=== PATIENT | male | born 1960 | race Two or more races ===

== ENCOUNTER 2024-03-01 09:47 | Emergency (ER) | payer MEDICARE, OTHER ==
[~2024-03-01] VITALS: Ht 172.7 cm; Wt 76.8 kg
[2024-03-01 10:25] LABS: Basophils # (auto) 0 10 ^3/uL (0-0.2); Mean Corpuscular Volume 100.5 fL (80.0-100.0); Monocytes # (auto) 0.5 10 ^3/uL (0-1.3); Neutrophils # (auto) 3.1 10 ^3/uL (1.6-8.6); White Blood Cell 4.9 10^3/uL (4.4-10.8)
[2024-03-01 10:27] LABS: Basophils % (auto) 0.6 % (0.0-2.0); Eosinophils # (auto) 0.1 10 ^3/uL (0-0.8); Eosinophils % (auto) 1.1 % (0.0-7.0); Hematocrit 49.7 % (41.0-53.0); Hemoglobin 17.4 g/dL (13.5-17.5); Lymphocytes # (auto) 1.2 10 ^3/uL (0.4-5.4); Mean Corpuscular Hemoglobin 35.3 pg (28.0-32.0); Mean Corpuscular Hgb Conc. 35.1 g/dL (32.0-36.0); Monocytes % (auto) 10.6 % (0.0-12.0); Neutrophils % (auto) 63.7 % (37.0-80.0); Nucleated Red Blood Cells % 0.3 %; Red Blood Cells 4.95 10^6/uL (4.5-5.90); Red Cell Distribution Width 14.3 % (11.8-14.3)
[2024-03-01 10:39] LABS: Chloride 102 mmol/L (98-107); Potassium 3.9 mmol/L (3.5-5.1); Sodium 136 mmol/L (136-145)
[2024-03-01 10:40] LABS: Anion Gap 5 (5-15); Calcium 9.1 mg/dL (8.5-10.1); Carbon Dioxide 29 mmol/L (20-30)
[2024-03-01 10:45] LABS: BUN/Creatinine Ratio 13.3 (10.0-20.0); Blood Urea Nitrogen 13 mg/dL (9-23); Glucose 130 mg/dL (74-106)
[2024-03-01 10:50] VITALS: BP 135/90; PULSE 75; RESP 18; TEMP 98.8; O2SAT 97
[2024-03-01 10:57] LABS: INR 1.23 (0.9-1.15); Prothrombin Time 12.8 sec (9.3-11.8)
[2024-03-01 10:58] LABS: Bilirubin, Total 1.2 mg/dL (0.2-1.0)
== END 2024-03-01 10:55 | disposition left against medical advice (07) ==
LOC: ER 09:47
DX: K70.9 Alcoholic liver disease, unspecified (principal); E11.9 Type 2 diabetes mellitus without complications
CPT/HCPCS: 36415; 80048; 82247; 84075; 84450; 84460; 84484; 85025; 85610; 93005

== ENCOUNTER 2024-05-07 12:18 | Inpatient (IN) | payer MEDICARE, OTHER ==
[2024-05-06 23:32] VITALS: PULSE 72; RESP 16; O2SAT 96
[~2024-05-07] VITALS: Ht 172.7 cm; Wt 65.4 kg
[2024-05-07 12:46] VITALS: PULSE 81; RESP 13; O2SAT 95
[2024-05-07 13:16] LABS: Basophils # (auto) 0.1 10 ^3/uL (0-0.2); Eosinophils # (auto) 0.1 10 ^3/uL (0-0.8); Eosinophils % (auto) 1.3 % (0.0-7.0); Hematocrit 48.1 % (41.0-53.0); Hemoglobin 16.7 g/dL (13.5-17.5); Lymphocytes # (auto) 1.4 10 ^3/uL (0.4-5.4); Lymphocytes % (auto) 25.5 % (10.0-50.0); Mean Corpuscular Hgb Conc. 34.7 g/dL (32.0-36.0); Mean Corpuscular Volume 100.7 fL (80.0-100.0); Monocytes # (auto) 0.7 10 ^3/uL (0-1.3); Monocytes % (auto) 11.9 % (0.0-12.0); Neutrophils # (auto) 3.4 10 ^3/uL (1.6-8.6); Neutrophils % (auto) 60.3 % (37.0-80.0); Nucleated Red Blood Cells % 0.1 %; Platelet Count (auto) 110 10^3/uL (140-450); Red Blood Cells 4.78 10^6/uL (4.5-5.90); Red Cell Distribution Width 15.5 % (11.8-14.3); White Blood Cell 5.6 10^3/uL (4.4-10.8)
[2024-05-07 13:31] LABS: Alanine Aminotransferase 26 U/L (7-40); Albumin 3.4 g/dL (3.2-4.8); Alkaline Phosphatase 166 U/L (46-116); Anion Gap 7 (5-15); Aspartate Aminotransferase 50 U/L (13-40); BUN/Creatinine Ratio 25.7 (10.0-20.0); Blood Urea Nitrogen 26 mg/dL (9-23); Calcium 9.2 mg/dL (8.7-10.4); Carbon Dioxide 24 mmol/L (20-30); Chloride 104 mmol/L (98-107); Glucose 135 mg/dL (74-106); Potassium 4.2 mmol/L (3.5-5.1); Sodium 135 mmol/L (136-145)
[2024-05-07 13:32] LABS: Bilirubin, Total 1.6 mg/dL (0.2-1.0); Total Protein 6.8 g/dL (5.7-8.2)
[2024-05-07 14:45] LABS: Urine Bacteria None Seen /hpf (None Seen)
[2024-05-07 14:58] LABS: Urine Blood Negative /uL (Negative); Urine Clarity Clear (Clear); Urine Color Yellow (Yellow); Urine Protein, UAD Negative (Negative); Urine Specific Gravity 1.031 (1.001-1.035); Urine Urobilinogen Normal (Negative); Urine WBC 1 /hpf (0 - 3)
[2024-05-07 15:10] LABS: INR 1.12 (0.9-1.15); Partial Thromboplastin Time 28.8 SEC (24.5-34.5); Prothrombin Time 11.8 sec (9.3-11.8)
[2024-05-07] MEDS: dilTIAZem 25 MG/5 ML VIAL IV ONE (16:59)
[2024-05-07] MEDS ORDERED: DOCUSATE SOD 100 MG CAP PO PRN (17:00)
[2024-05-07] MEDS ORDERED: ACETAMINOPHEN 325 MG TAB PO PRN (17:00)
[2024-05-07] MEDS ORDERED: HYDROmorphone HCL 2 MG/ML VL/or syr IV PRN (17:00)
[2024-05-07] MEDS ORDERED: HYDROcodone-ACET 5/325MG TAB PO PRN (17:00)
[2024-05-07] MEDS ORDERED: ONDANSETRON HCL 4 MG/2 ML VIAL IV PRN (17:00)
[2024-05-07] MEDS: METOPROLOL TARTRATE 25 MG TAB PO ONE (18:20)
[2024-05-07 19:30] VITALS: PULSE 71; RESP 17; O2SAT 94
[2024-05-07] MEDS: MELATONIN 5 MG TAB ONE (23:08)
[2024-05-07] MEDS: MELATONIN 5 MG TAB PO ONE (23:10)
[2024-05-07] MEDS: SODIUM CHLOR 0.9% PF (SALINE LOCK) 10ML VIAL/SYR IV SCH (23:23)
[2024-05-07 23:32] VITALS: BP 126/78; PULSE 72; RESP 18; RESP 20; TEMP 98.3; O2SAT 96
[2024-05-08] VITALS (8 sets, daily range): BP systolic 98–105; BP diastolic 58–81; PULSE 67–73; RESP 16–20; TEMP 97.6–98.5; O2SAT 95–98
[2024-05-08] MEDS: METOPROLOL TARTRATE 25 MG TAB PO SCH (09:18)
[2024-05-08 09:39] LABS: Basophils # (auto) 0 10 ^3/uL (0-0.2); Basophils % (auto) 1.1 % (0.0-2.0); Eosinophils # (auto) 0.1 10 ^3/uL (0-0.8); Hemoglobin 15.7 g/dL (13.5-17.5); Lymphocytes # (auto) 1.1 10 ^3/uL (0.4-5.4); Neutrophils # (auto) 2.5 10 ^3/uL (1.6-8.6); Nucleated Red Blood Cells % 0.3 %; White Blood Cell 4.3 10^3/uL (4.4-10.8)
[2024-05-08 09:40] LABS: Eosinophils % (auto) 1.9 % (0.0-7.0); Hematocrit 44.6 % (41.0-53.0); Lymphocytes % (auto) 25.8 % (10.0-50.0); Mean Corpuscular Hemoglobin 35.1 pg (28.0-32.0); Mean Corpuscular Hgb Conc. 35.3 g/dL (32.0-36.0); Mean Corpuscular Volume 99.5 fL (80.0-100.0); Monocytes # (auto) 0.5 10 ^3/uL (0-1.3); Monocytes % (auto) 12.3 % (0.0-12.0); Neutrophils % (auto) 58.9 % (37.0-80.0); Platelet Count (auto) 105 10^3/uL (140-450); Red Blood Cells 4.48 10^6/uL (4.5-5.90); Red Cell Distribution Width 15.8 % (11.8-14.3)
[2024-05-08 10:06] LABS: Alanine Aminotransferase 22 U/L (7-40); Alkaline Phosphatase 126 U/L (46-116); Anion Gap 4 (5-15); BUN/Creatinine Ratio 23.6 (10.0-20.0); Blood Urea Nitrogen 21 mg/dL (9-23); Calcium 9.2 mg/dL (8.7-10.4); Carbon Dioxide 27 mmol/L (20-30); Chloride 104 mmol/L (98-107); Glucose 114 mg/dL (74-106); Potassium 4.6 mmol/L (3.5-5.1); Sodium 135 mmol/L (136-145)
[2024-05-08 10:07] LABS: Albumin 3.1 g/dL (3.2-4.8); Aspartate Aminotransferase 51 U/L (13-40); Bilirubin, Total 1.4 mg/dL (0.2-1.0); Total Protein 6.5 g/dL (5.7-8.2)
[2024-05-08] MEDS: ALBUMIN 25% 100 ML IV SCH (12:36)
[2024-05-08 14:55] LABS: Body Fluid Polymorphonuclear 5 % (0-25); Body Fluid Red Blood Cells 635 CUMM (0-2000); Body Fluid White Blood Cells 118 CUMM (0-200)
[2024-05-08] MEDS ORDERED: TRAZ-227 PO (15:23)
[2024-05-08] MEDS ORDERED: EMPA1TAB3 PO (15:23)
[2024-05-08] MEDS ORDERED: MAGN400T40 PO (15:23)
[2024-05-08] MEDS ORDERED: PANT40T PO (15:23)
[2024-05-08] MEDS ORDERED: LACT10SO3 PO (15:23)
[2024-05-08] MEDS ORDERED: SPIR50TA5 PO (15:23)
[2024-05-08] MEDS ORDERED: HYDR-3682 PO (15:23)
[2024-05-08] MEDS ORDERED: RIFA550T PO (15:23)
[2024-05-08] MEDS ORDERED: FAMO40TA7 PO (15:23)
[2024-05-08] MEDS ORDERED: FURO40TA4 PO (15:23)
[2024-05-08] MEDS ORDERED: MET25T PO (15:23)
[2024-05-08] MEDS ORDERED: TAMS0.4C39 PO (15:23)
[2024-05-08] MEDS: ALBUMIN 25% 50 ML IV ONE (17:45)
[2024-05-08] MEDS: CHOLECALCIFEROL (VITD3) 1,000UNIT=25mCg TAB PO ONE (19:48)
[2024-05-09 01:00] VITALS: BP 102/63; PULSE 71; RESP 20; TEMP 98.4; O2SAT 97
[2024-05-09 05:00] VITALS: BP 104/66; PULSE 70; RESP 20; TEMP 98.3; O2SAT 95
[2024-05-09 06:20] LABS: Magnesium 2.1 mg/dL (1.6-2.6)
[2024-05-09 07:30] VITALS: PULSE 70; RESP 16
[2024-05-09 09:00] VITALS: BP 93/62; PULSE 70; RESP 18; TEMP 97.8; O2SAT 98
[2024-05-09] MEDS: CHOLECALCIFEROL (VITD3) 1,000UNIT=25mCg TAB PO SCH (10:00)
[2024-05-09 13:00] VITALS: BP 100/64; PULSE 72; RESP 18; TEMP 98.1; O2SAT 99
[2024-05-09 13:07] LABS: Protein, Body Fluid 1.5 g/dL (.)
[2024-05-09 15:02] VITALS: BP 93/62; PULSE 70; RESP 18; TEMP 36.7; O2SAT 95
== END 2024-05-09 17:00 | disposition home or self-care (01) | DRG 433 ==
LOC: ER 12:18 → TELE 16:57 → TELE-CENTR 16:57
PROVIDERS: ADMIT Internal Medicine Geriatric Medicine; ATTEND Internal Medicine Geriatric Medicine
PROC: 0W9G3ZZ Drainage of Peritoneal Cavity, Percutaneous Approach (ICD-10-PCS; principal; 2024-05-08)
DX: K70.31 Alcoholic cirrhosis of liver with ascites (principal); I47.10 Supraventricular tachycardia, unspecified; I85.10 Secondary esophageal varices without bleeding; I48.92 Unspecified atrial flutter; I48.0 Paroxysmal atrial fibrillation; R14.0 Abdominal distension (gaseous); K72.10 Chronic hepatic failure without coma; F10.10 Alcohol abuse, uncomplicated; Y90.9 Presence of alcohol in blood, level not specified; E11.9 Type 2 diabetes mellitus without complications; L50.8 Other urticaria; E55.9 Vitamin D deficiency, unspecified; Z76.82 Awaiting organ transplant status; Z83.3 Family history of diabetes mellitus
CPT/HCPCS: 36415; 49083; 71045; 76705; 76942; 80053; 80061; 81001; 82306; 82607; 83036; 83735; 83880; 83986; 84443; 84484; 85025; 85610; 85730; 87205; 89051; 93005; 93306; G0378; P9047

== ENCOUNTER → 2024-06-02 | Outpatient (CLI) | payer MEDICARE, OTHER ==
[~2024-06-02] MED LIST: EMPA1TAB3 PO; FAMO40TA7 PO; FURO40TA4 PO; HYDR-3682 PO; LACT10SO3 PO; MAGN400T40 PO; MET25T PO; PANT40T PO; RIFA550T PO; SPIR50TA5 PO; TAMS0.4C39 PO; TRAZ-227 PO
[2024-06-02] MEDS: ALBUMIN 25% 200 ML IV ONE (13:57)
[2024-06-02 20:38] LABS: Body Fluid White Blood Cells 125 CUMM (0-200)
[2024-06-02 20:39] LABS: Body Fluid Polymorphonuclear 15 % (0-25); Body Fluid Red Blood Cells 160 CUMM (0-2000)
== END | disposition home or self-care (01) ==
LOC: XYW 11:56
DX: R18.8 Other ascites (principal); Z83.3 Family history of diabetes mellitus
CPT/HCPCS: 49083; 83986; 87205; 89051; C1729; P9047; 76942

== ENCOUNTER 2024-06-09 05:28 | Inpatient (IN) | payer MEDICARE, OTHER ==
[~2024-06-09] VITALS: Ht 172.7 cm; Wt 71.5 kg
[2024-06-09 06:45] LABS: Alanine Aminotransferase 25 U/L (7-40); Albumin 3.4 g/dL (3.2-4.8); Alkaline Phosphatase 163 U/L (46-116); Anion Gap 11 (5-15); Aspartate Aminotransferase 40 U/L (13-40); Blood Urea Nitrogen 32 mg/dL (9-23); Calcium 8.9 mg/dL (8.7-10.4); Carbon Dioxide 19 mmol/L (20-30); Chloride 101 mmol/L (98-107); Glucose 195 mg/dL (74-106); Potassium 4.7 mmol/L (3.5-5.1); Sodium 131 mmol/L (136-145)
[2024-06-09 06:46] LABS: Total Protein 6.9 g/dL (5.7-8.2)
[2024-06-09 06:57] LABS: Basophils # (auto) 0 10 ^3/uL (0-0.2); Eosinophils # (auto) 0 10 ^3/uL (0-0.8); Lymphocytes # (auto) 0.4 10 ^3/uL (0.4-5.4); Lymphocytes % (auto) 3.7 % (10.0-50.0); Mean Corpuscular Hgb Conc. 35.5 g/dL (32.0-36.0); Nucleated Red Blood Cells % 0.1 %
[2024-06-09 07:02] LABS: Basophils % (auto) 0.2 % (0.0-2.0); Hematocrit 47.4 % (41.0-53.0); Hemoglobin 16.8 g/dL (13.5-17.5); Mean Corpuscular Hemoglobin 35.6 pg (28.0-32.0); Mean Corpuscular Volume 100.4 fL (80.0-100.0); Monocytes # (auto) 0.3 10 ^3/uL (0-1.3); Monocytes % (auto) 2.9 % (0.0-12.0); Neutrophils # (auto) 9.4 10 ^3/uL (1.6-8.6); Neutrophils % (auto) 93.2 % (37.0-80.0); Platelet Count (auto) 154 10^3/uL (140-450); Red Blood Cells 4.73 10^6/uL (4.5-5.90); Red Cell Distribution Width 15.6 % (11.8-14.3)
[2024-06-09] MEDS: cefTRIAXone 2GM/50ML D5W 50 ML IV ONE (09:01)
[2024-06-09] MEDS: ONDANSETRON HCL 4 MG/2 ML VIAL IV ONE (09:01)
[2024-06-09] MEDS: MORPHINE SULFATE 4 MG/ML SYR/VIAL IV ONE (09:10)
[2024-06-09] MEDS: ALBUMIN 25% 100 ML IV ONE ×2 (09:46→10:14)
[2024-06-09 09:54] VITALS: PULSE 74; RESP 16; O2SAT 98
[2024-06-09 12:27] LABS: Body Fluid Polymorphonuclear 75 % (0-25); Body Fluid Red Blood Cells 1368 CUMM (0-2000); Body Fluid White Blood Cells 6333 CUMM (0-200)
[2024-06-09 12:57] LABS: Urine Bacteria None Seen /hpf (None Seen)
[2024-06-09 13:11] LABS: Urine Blood Negative /uL (Negative); Urine Clarity Clear (Clear); Urine Color Light-Orange (Yellow); Urine Protein, UAD TRACE (Negative); Urine Urobilinogen Normal (Negative); Urine WBC <1 /hpf (0 - 3); Urine pH 5.5 (5.0-9.0)
[2024-06-09] MEDS: ONDANSETRON HCL 4 MG/2 ML VIAL IV PRN (13:31)
[2024-06-09] MEDS: MORPHINE SULFATE INJ 2 MG/ml SYRG IV PRN (13:32)
[2024-06-09] MEDS: traZODone HCL 50 MG TAB PO SCH (22:38)
[2024-06-09] MEDS: METOPROLOL TARTRATE 25 MG TAB PO SCH (22:38)
[2024-06-09] MEDS: rifAXIMin 550 MG TAB PO SCH (22:38)
[2024-06-09 23:10] VITALS: BP 109/78; PULSE 85; RESP 18; TEMP 98.4; O2SAT 95
[2024-06-09 23:12] VITALS: PULSE 85; RESP 18; O2SAT 95
[2024-06-10] VITALS (39 sets, daily range): BP systolic 78–113; BP diastolic 34–77; PULSE 61–155; RESP 14–28; TEMP 97.8–98.5; O2SAT 93–99
[2024-06-10 07:55] LABS: Basophils # (auto) 0 10 ^3/uL (0-0.2); Eosinophils % (auto) 0.6 % (0.0-7.0); Hematocrit 46.1 % (41.0-53.0); Hemoglobin 16.2 g/dL (13.5-17.5); Mean Corpuscular Hemoglobin 35.6 pg (28.0-32.0); Mean Corpuscular Hgb Conc. 35.2 g/dL (32.0-36.0); Monocytes # (auto) 0.8 10 ^3/uL (0-1.3); Nucleated Red Blood Cells % 0.1 %; Platelet Count (auto) 100 10^3/uL (140-450)
[2024-06-10 07:57] LABS: Basophils % (auto) 0.4 % (0.0-2.0); Eosinophils # (auto) 0.1 10 ^3/uL (0-0.8); Lymphocytes # (auto) 0.7 10 ^3/uL (0.4-5.4); Lymphocytes % (auto) 8.7 % (10.0-50.0); Mean Corpuscular Volume 101.1 fL (80.0-100.0); Monocytes % (auto) 10.1 % (0.0-12.0); Neutrophils # (auto) 6.6 10 ^3/uL (1.6-8.6); Neutrophils % (auto) 80.2 % (37.0-80.0); Red Blood Cells 4.56 10^6/uL (4.5-5.90); Red Cell Distribution Width 15.9 % (11.8-14.3); White Blood Cell 8.2 10^3/uL (4.4-10.8)
[2024-06-10 08:13] LABS: Anion Gap 7 (5-15); Calcium 9.3 mg/dL (8.7-10.4); Carbon Dioxide 23 mmol/L (20-30); Chloride 98 mmol/L (98-107); Sodium 128 mmol/L (136-145)
[2024-06-10 08:19] LABS: BUN/Creatinine Ratio 25.4 (10.0-20.0); Blood Urea Nitrogen 32 mg/dL (9-23); Glucose 224 mg/dL (74-106)
[2024-06-10 08:30] LABS: Potassium 5.6 mmol/L (3.5-5.1)
[2024-06-10] MEDS: PANTOPRAZOLE 40 MG TAB PO SCH (09:53)
[2024-06-10] MEDS: MAGNESIUM OXIDE 400 MG TAB PO SCH (09:55)
[2024-06-10] MEDS: FUROSEMIDE 40 MG TAB PO SCH (09:55)
[2024-06-10] MEDS: FAMOTIDINE 20 MG TAB PO SCH (09:55)
[2024-06-10] MEDS: SODIUM CHLORIDE 0.9% 1,000 ML IV SCH (12:00)
[2024-06-10] MEDS: SODIUM CHLORIDE 0.9% 500 ML IV ONE (12:00)
[2024-06-10 12:23] LABS: Chloride 98 mmol/L (98-107); Sodium 128 mmol/L (136-145)
[2024-06-10 12:24] LABS: Anion Gap 5 (5-15); Calcium 9.4 mg/dL (8.7-10.4); Carbon Dioxide 25 mmol/L (20-30)
[2024-06-10 12:29] LABS: BUN/Creatinine Ratio 20.5 (10.0-20.0); Blood Urea Nitrogen 31 mg/dL (9-23); Glucose 231 mg/dL (74-106)
[2024-06-10 12:47] LABS: Potassium 6.1 mmol/L (3.5-5.1)
[2024-06-10 13:01] LABS: INR 1.26 (0.9-1.15); Prothrombin Time 13.1 sec (9.3-11.8)
[2024-06-10 13:07] LABS: Protein, Body Fluid 1.2 g/dL (.)
[2024-06-10] MEDS: ALBUMIN 25% 100 ML IV SCH (13:16)
[2024-06-10] MEDS: AMIODARONE BOLUS KIT 100 ML IV ONE (14:42)
[2024-06-10] MEDS: AMIODARONE 450mg/250ml AE 250 ML IV SCH ×2 (14:47→21:25)
[2024-06-10] MEDS: NOREPINEPHRINE 8 MG/250ML KIT 250 ML IV SCH (14:50)
[2024-06-10] MEDS ORDERED: PHENYLEPHRINE IV 250 ML IV SCH (16:00)
[2024-06-10] MEDS: SODIUM ZIRCONIUM CYCL 10 GM PAK PO ONE ×2 (16:10→22:21)
[2024-06-10] MEDS: cefTRIAXone 2GM/50ML D5W 50 ML IV ONE (16:14)
[2024-06-10] MEDS: PHENYLEPHRINE INJ 80 MG in SODIUM CHL 0.9% 242 ML IV SCH (16:27)
[2024-06-10] MEDS: HYDROmorphone HCL 2 MG/ML VL/or syr IV ONE (16:30)
[2024-06-10] MEDS: DIGOXIN (250MCG/ML) 2 ML AMPULE IV ONE (16:56)
[2024-06-10] MEDS: LIDOCAINE 1% (LOCAL ANESTH.) PF 5ml SDV ID ONE (18:15)
[2024-06-10] MEDS ORDERED: DEXTROSE (50%) 50ML SYRG IV PRN (19:30)
[2024-06-10] MEDS: SODIUM CHLOR 0.9% PF (SALINE LOCK) 10ML VIAL/SYR IV SCH (21:24)
[2024-06-10] MEDS: VASOPRESSIN 20 UNITS in SODIUM CHL 0.9% 99 ML IV SCH (21:30)
[2024-06-10] MEDS: ALBUTEROL SULF 2.5 MG/0.5ML(0.5%) NEB SOLN NEB ONE (21:59)
[2024-06-10] MEDS: DEXTROSE (50%) 50ML SYRG IV ONE (22:16)
[2024-06-10] MEDS: InsuLIN REG 1unit/0.01ml Soln (100units/ml) IV ONE (22:18)
[2024-06-11] VITALS (57 sets, daily range): BP systolic 86–162; BP diastolic 42–86; PULSE 72–103; RESP 13–26; TEMP 98.1–98.5; O2SAT 92–98
[2024-06-11] MEDS: ACCU-CHEK COMFORT CURVE STRIP VI SCH (00:33)
[2024-06-11] MEDS: InsuLIN REG 1unit/0.01ml Soln (100units/ml) SC SCH (00:36)
[2024-06-11 07:04] LABS: Basophils # (auto) 0.1 10 ^3/uL (0-0.2); Basophils % (auto) 0.7 % (0.0-2.0); Eosinophils # (auto) 0.1 10 ^3/uL (0-0.8); Eosinophils % (auto) 0.9 % (0.0-7.0); Hematocrit 43.8 % (41.0-53.0); Hemoglobin 15.6 g/dL (13.5-17.5); Lymphocytes % (auto) 10.8 % (10.0-50.0); Mean Corpuscular Hemoglobin 35.9 pg (28.0-32.0); Mean Corpuscular Hgb Conc. 35.7 g/dL (32.0-36.0); Mean Corpuscular Volume 100.7 fL (80.0-100.0); Monocytes # (auto) 0.9 10 ^3/uL (0-1.3); Monocytes % (auto) 10.1 % (0.0-12.0); Neutrophils # (auto) 6.8 10 ^3/uL (1.6-8.6); Neutrophils % (auto) 77.5 % (37.0-80.0); Platelet Count (auto) 117 10^3/uL (140-450); Red Blood Cells 4.35 10^6/uL (4.5-5.90); White Blood Cell 8.8 10^3/uL (4.4-10.8)
[2024-06-11 07:19] LABS: Alanine Aminotransferase 13 U/L (7-40); Alkaline Phosphatase 73 U/L (46-116); Anion Gap 8 (5-15); Calcium 9.6 mg/dL (8.7-10.4); Carbon Dioxide 25 mmol/L (20-30); Chloride 97 mmol/L (98-107); Sodium 130 mmol/L (136-145)
[2024-06-11 07:22] LABS: Glucose 206 mg/dL (74-106)
[2024-06-11 07:23] LABS: BUN/Creatinine Ratio 19.3 (10.0-20.0); Blood Urea Nitrogen 28 mg/dL (9-23)
[2024-06-11 07:24] LABS: Albumin 3.7 g/dL (3.2-4.8); Aspartate Aminotransferase 17 U/L (13-40)
[2024-06-11 07:25] LABS: Total Protein 6.2 g/dL (5.7-8.2)
[2024-06-11] MEDS: SODIUM CHLORIDE 0.9% 1,000 ML IV SCH (09:00)
[2024-06-11] MEDS: AMIODARONE HCL 200 MG TAB PO SCH (10:13)
[2024-06-11] MEDS: cefTRIAXone 2GM/50ML D5W 50 ML IV SCH (11:06)
[2024-06-11] MEDS ORDERED: NITROGLYCERIN 0.4 MG SL TAB SL PRN (11:30)
[2024-06-11] MEDS ORDERED: HYDROmorphone HCL 2 MG/ML VL/or syr IV PRN (12:15)
[2024-06-11] MEDS: fentaNYL CITRATE 100 MCG/2 ML VL IV ONE (12:55)
[2024-06-11] MEDS: MORPHINE SULFATE INJ 2 MG/ml SYRG IV PRN (16:59)
[2024-06-11 17:28] LABS: Urine Bacteria FEW /hpf (None Seen); Urine Blood Negative /uL (Negative); Urine Clarity Clear (Clear); Urine Color Yellow (Yellow); Urine Protein, UAD TRACE (Negative); Urine Urobilinogen Normal (Negative); Urine WBC 1 /hpf (0 - 3); Urine pH 5.5 (5.0-9.0)
[2024-06-11 17:32] LABS: Sodium Urine < 10 mmol/L (40-220)
[2024-06-11 17:37] LABS: Protein, Urine 33.5 mg/dL (1-14)
[2024-06-11 17:39] LABS: Creatinine, Urine 131.15 mg/dL (30.0-125.0)
[2024-06-11] MEDS: FLECAINIDE ACETATE 50 MG TAB PO SCH (21:38)
[2024-06-11] MEDS: FUROSEMIDE 40 MG TAB PO ONE (21:39)
[2024-06-11] MEDS: INSULIN LANTUS (GLARGINE) 1 /0.01ml (100units/ml) SC SCH (21:50)
[2024-06-12] VITALS (9 sets, daily range): BP systolic 104–120; BP diastolic 63–96; PULSE 83–151; RESP 16–25; TEMP 97.9–98.8; O2SAT 93–99
[2024-06-12 08:54] LABS: Basophils # (auto) 0 10 ^3/uL (0-0.2); Basophils % (auto) 0.3 % (0.0-2.0); Eosinophils # (auto) 0.1 10 ^3/uL (0-0.8); Eosinophils % (auto) 0.9 % (0.0-7.0); Hematocrit 47.4 % (41.0-53.0); Hemoglobin 16.4 g/dL (13.5-17.5); Lymphocytes # (auto) 0.6 10 ^3/uL (0.4-5.4); Lymphocytes % (auto) 5.6 % (10.0-50.0); Mean Corpuscular Hgb Conc. 34.6 g/dL (32.0-36.0); Monocytes % (auto) 9.7 % (0.0-12.0); Neutrophils # (auto) 8.5 10 ^3/uL (1.6-8.6); Neutrophils % (auto) 83.5 % (37.0-80.0); Platelet Count (auto) 92 10^3/uL (140-450); Red Blood Cells 4.56 10^6/uL (4.5-5.90); Red Cell Distribution Width 15.9 % (11.8-14.3); White Blood Cell 10.2 10^3/uL (4.4-10.8)
[2024-06-12 09:08] LABS: Alanine Aminotransferase 12 U/L (7-40); Albumin 3.8 g/dL (3.2-4.8); Alkaline Phosphatase 76 U/L (46-116); Anion Gap 8 (5-15); Aspartate Aminotransferase 19 U/L (13-40); BUN/Creatinine Ratio 22.1 (10.0-20.0); Blood Urea Nitrogen 30 mg/dL (9-23); Calcium 9.9 mg/dL (8.7-10.4); Carbon Dioxide 25 mmol/L (20-31); Chloride 98 mmol/L (98-107); Glucose 220 mg/dL (74-106); Sodium 131 mmol/L (136-145)
[2024-06-12 09:09] LABS: Bilirubin, Direct 0.7 mg/dL (<0.3); Bilirubin, Total 1.5 mg/dL (0.2-1.0); Phosphorus 4.3 mg/dL (2.4-5.1); Total Protein 6.4 g/dL (5.7-8.2)
[2024-06-12 09:20] LABS: Platelet Estimate Decreased
[2024-06-12] MEDS ORDERED: DEXTROSE (50%) 50ML SYRG IV PRN ×2 (09:30→17:15)
[2024-06-12 10:34] LABS: Uric Acid 6.5 mg/dL (3.7-9.2)
[2024-06-12 10:58] LABS: Potassium 5.6 mmol/L (3.5-5.1)
[2024-06-12] MEDS: InsuLIN REG 1unit/0.01ml Soln (100units/ml) SC SCH ×2 (11:30→18:25)
[2024-06-12] MEDS: SODIUM ZIRCONIUM CYCL 10 GM PAK PO ONE (12:04)
[2024-06-12] MEDS: ACCU-CHEK COMFORT CURVE STRIP VI SCH ×2 (12:04→17:55)
[2024-06-12] MEDS: ALBUMIN 25% 50 ML IV SCH (16:58)
[2024-06-12 19:13] LABS: Body Fluid pH 8
[2024-06-12 19:14] LABS: Body Fluid Red Blood Cells 1641 CUMM (0-2000); Body Fluid White Blood Cells 578 CUMM (0-200)
[2024-06-12 19:15] LABS: Body Fluid Polymorphonuclear 59 % (0-25)
[2024-06-12] MEDS: dilTIAZem 25 MG/5 ML VIAL IV ONE (19:50)
[2024-06-12] MEDS: INSULIN LANTUS (GLARGINE) 1 /0.01ml (100units/ml) SC SCH (21:14)
[2024-06-12] MEDS: ERGOCALCIFEROL 50,000 UNIT(1.25MG) CAP PO SCH (21:50)
[2024-06-12] MEDS: ADENOSINE 6 MG/2 ML INJ IV ONE (22:05)
[2024-06-12 23:38] LABS: Chloride 99 mmol/L (98-107); Potassium 4.8 mmol/L (3.5-5.1); Sodium 132 mmol/L (136-145)
[2024-06-12 23:39] LABS: Anion Gap 7 (5-15); Calcium 9.6 mg/dL (8.7-10.4); Carbon Dioxide 26 mmol/L (20-31)
[2024-06-12 23:44] LABS: BUN/Creatinine Ratio 21.3 (10.0-20.0); Blood Urea Nitrogen 30 mg/dL (9-23); Glucose 190 mg/dL (74-106)
[2024-06-12 23:45] LABS: Magnesium 2.2 mg/dL (1.6-2.6)
[2024-06-13] VITALS (39 sets, daily range): BP systolic 84–119; BP diastolic 53–74; PULSE 64–146; RESP 14–27; TEMP 97.9–98.7; O2SAT 92–98
[2024-06-13] MEDS: ADENOSINE 6 MG/2 ML INJ IV ONE ×2 (01:30→02:48)
[2024-06-13] MEDS: dilTIAZem 25 MG/5 ML VIAL IV ONE ×3 (03:11→05:04)
[2024-06-13] MEDS: dilTIAZem 125mg/125ml BAG KIT 125 ML IV SCH (03:30)
[2024-06-13] MEDS: AMIODARONE BOLUS KIT 100 ML IV ONE (05:04)
[2024-06-13] MEDS: AMIODARONE 450mg/250ml AE 250 ML IV ONE (05:04)
[2024-06-13 06:17] LABS: Basophils # (auto) 0 10 ^3/uL (0-0.2); Basophils % (auto) 0.3 % (0.0-2.0); Eosinophils # (auto) 0.1 10 ^3/uL (0-0.8); Eosinophils % (auto) 0.7 % (0.0-7.0); Hematocrit 44.6 % (41.0-53.0); Lymphocytes # (auto) 0.6 10 ^3/uL (0.4-5.4); Lymphocytes % (auto) 6.7 % (10.0-50.0); Mean Corpuscular Hemoglobin 36.3 pg (28.0-32.0); Mean Corpuscular Hgb Conc. 35.9 g/dL (32.0-36.0); Monocytes # (auto) 1.2 10 ^3/uL (0-1.3); Monocytes % (auto) 12.9 % (0.0-12.0); Neutrophils # (auto) 7.1 10 ^3/uL (1.6-8.6); Neutrophils % (auto) 79.4 % (37.0-80.0); Platelet Count (auto) 87 10^3/uL (140-450); Red Blood Cells 4.41 10^6/uL (4.5-5.90); Red Cell Distribution Width 15.2 % (11.8-14.3)
[2024-06-13 06:23] LABS: Alanine Aminotransferase 13 U/L (7-40); Alkaline Phosphatase 93 U/L (46-116); Anion Gap 8 (5-15); BUN/Creatinine Ratio 22.9 (10.0-20.0); Blood Urea Nitrogen 33 mg/dL (9-23); Calcium 9.5 mg/dL (8.7-10.4); Carbon Dioxide 25 mmol/L (20-31); Chloride 98 mmol/L (98-107); Glucose 221 mg/dL (74-106); Potassium 4.8 mmol/L (3.5-5.1); Sodium 131 mmol/L (136-145)
[2024-06-13 06:24] LABS: Albumin 3.7 g/dL (3.2-4.8); Aspartate Aminotransferase 24 U/L (13-40); Bilirubin, Total 1.3 mg/dL (0.2-1.0); Total Protein 6.3 g/dL (5.7-8.2)
[2024-06-13] MEDS: dilTIAZem HCL 60 MG TAB PO ONE (11:03)
[2024-06-13] MEDS: dilTIAZem HCL 60 MG TAB PO SCH (17:18)
[2024-06-13] MEDS: Ensure Enlive Strawberry 8oz Bottle PO SCH (18:00)
[2024-06-13] MEDS: chlorproMAZINE HCL 25 MG TAB PO PRN (18:19)
[2024-06-13] MEDS: DOCUSATE SOD 100 MG CAP PO SCH (21:37)
[2024-06-14] VITALS (12 sets, daily range): BP systolic 87–125; BP diastolic 57–75; PULSE 73–97; RESP 17–20; TEMP 97.8–98.6; O2SAT 94–97
[2024-06-14] MEDS: CHLORTHALIDONE 25 MG TAB PO ONE (00:49)
[2024-06-14 07:16] LABS: Basophils # (auto) 0 10 ^3/uL (0-0.2); Basophils % (auto) 0.5 % (0.0-2.0); Eosinophils # (auto) 0.1 10 ^3/uL (0-0.8); Eosinophils % (auto) 1.3 % (0.0-7.0); Hematocrit 44.1 % (41.0-53.0); Hemoglobin 14.9 g/dL (13.5-17.5); Lymphocytes # (auto) 0.5 10 ^3/uL (0.4-5.4); Lymphocytes % (auto) 7.5 % (10.0-50.0); Mean Corpuscular Hemoglobin 34.8 pg (28.0-32.0); Mean Corpuscular Hgb Conc. 33.8 g/dL (32.0-36.0); Mean Corpuscular Volume 102.9 fL (80.0-100.0); Monocytes # (auto) 0.9 10 ^3/uL (0-1.3); Monocytes % (auto) 12.6 % (0.0-12.0); Neutrophils # (auto) 5.6 10 ^3/uL (1.6-8.6); Neutrophils % (auto) 78.1 % (37.0-80.0); Nucleated Red Blood Cells % 0.1 %; Platelet Count (auto) 86 10^3/uL (140-450); Red Blood Cells 4.28 10^6/uL (4.5-5.90); White Blood Cell 7.2 10^3/uL (4.4-10.8)
[2024-06-14 07:47] LABS: Alanine Aminotransferase 14 U/L (7-40); Alkaline Phosphatase 84 U/L (46-116); Anion Gap 8 (5-15); BUN/Creatinine Ratio 19.2 (10.0-20.0); Blood Urea Nitrogen 32 mg/dL (9-23); Calcium 9.2 mg/dL (8.7-10.4); Carbon Dioxide 23 mmol/L (20-31); Chloride 95 mmol/L (98-107); Glucose 249 mg/dL (74-106); Potassium 5.1 mmol/L (3.5-5.1)
[2024-06-14 07:48] LABS: Albumin 3.5 g/dL (3.2-4.8); Aspartate Aminotransferase 21 U/L (13-40)
[2024-06-14 07:49] LABS: Bilirubin, Direct 0.7 mg/dL (<0.3); Bilirubin, Total 1.5 mg/dL (0.2-1.0); Sodium 126 mmol/L (136-145)
[2024-06-14] MEDS: SODIUM CHLORIDE 0.9% 1,000 ML IV ONE (13:30)
[2024-06-15] VITALS (17 sets, daily range): BP systolic 90–154; BP diastolic 53–84; PULSE 63–153; RESP 15–25; TEMP 97.4–98.2; O2SAT 91–98
[2024-06-15 07:12] LABS: Basophils # (auto) 0 10 ^3/uL (0-0.2); Eosinophils # (auto) 0.1 10 ^3/uL (0-0.8); Eosinophils % (auto) 1.6 % (0.0-7.0); Lymphocytes # (auto) 0.5 10 ^3/uL (0.4-5.4); Monocytes # (auto) 0.9 10 ^3/uL (0-1.3)
[2024-06-15 07:18] LABS: Basophils % (auto) 0.8 % (0.0-2.0); Hematocrit 40.4 % (41.0-53.0); Hemoglobin 14.4 g/dL (13.5-17.5); Lymphocytes % (auto) 8.9 % (10.0-50.0); Mean Corpuscular Hemoglobin 36.1 pg (28.0-32.0); Mean Corpuscular Hgb Conc. 35.7 g/dL (32.0-36.0); Mean Corpuscular Volume 101.2 fL (80.0-100.0); Monocytes % (auto) 15.1 % (0.0-12.0); Neutrophils # (auto) 4.4 10 ^3/uL (1.6-8.6); Neutrophils % (auto) 73.6 % (37.0-80.0); Nucleated Red Blood Cells % 0.1 %; Red Blood Cells 3.99 10^6/uL (4.5-5.90); Red Cell Distribution Width 15.1 % (11.8-14.3); White Blood Cell 5.9 10^3/uL (4.4-10.8)
[2024-06-15 07:23] LABS: Calcium 8.8 mg/dL (8.7-10.4); Chloride 96 mmol/L (98-107); Potassium 4.8 mmol/L (3.5-5.1); Sodium 125 mmol/L (136-145)
[2024-06-15 07:24] LABS: Anion Gap 7 (5-15); Carbon Dioxide 22 mmol/L (20-31)
[2024-06-15 07:26] LABS: Platelet Count (auto) 86 10^3/uL (140-450)
[2024-06-15 07:29] LABS: Blood Urea Nitrogen 33 mg/dL (9-23); Glucose 153 mg/dL (74-106)
[2024-06-15] MEDS ORDERED: THROAT LOZENGES(CEPASTAT) MT PRN (12:15)
[2024-06-15] MEDS ORDERED: SODIUM CHLORIDE 0.9% 250 ML IV ONE (12:15)
[2024-06-15] MEDS: SODIUM CHLORIDE 0.9% 250 ML IV ONE (16:03)
[2024-06-15] MEDS: dilTIAZem 25 MG/5 ML VIAL IV ONE (19:30)
[2024-06-15] MEDS: ALBUMIN 25% 50 ML IV ONE (19:35)
[2024-06-15] MEDS: DIGOXIN (250MCG/ML) 2 ML AMPULE IV ONE ×2 (19:53→20:05)
[2024-06-15] MEDS: ADENOSINE 6 MG/2 ML INJ IV ONE ×2 (20:04→20:07)
[2024-06-15] MEDS: DIGOXIN (250MCG/ML) 2 ML AMPULE ONE (20:06)
[2024-06-15] MEDS: AMIODARONE 450mg/250ml AE 250 ML IV ONE (20:09)
[2024-06-15] MEDS: AMIODARONE 450mg/250ml AE 250 ML IV SCH (20:09)
[2024-06-15] MEDS: SODIUM CHLORIDE 0.9% 500 ML IV ONE (20:10)
[2024-06-16] VITALS (78 sets, daily range): BP systolic 75–120; BP diastolic 43–73; PULSE 53–72; RESP 11–29; TEMP 98–98.8; O2SAT 91–99
[2024-06-16] MEDS: DIGOXIN (250MCG/ML) 2 ML AMPULE IV ONE (02:45)
[2024-06-16] MEDS ORDERED: AMIODARONE 200 MG PO ONE (02:45)
[2024-06-16 03:51] LABS: Basophils # (auto) 0 10 ^3/uL (0-0.2); Basophils % (auto) 0.4 % (0.0-2.0); Eosinophils # (auto) 0.1 10 ^3/uL (0-0.8); Eosinophils % (auto) 1.8 % (0.0-7.0); Hematocrit 37.8 % (41.0-53.0); Hemoglobin 13.6 g/dL (13.5-17.5); Lymphocytes # (auto) 0.6 10 ^3/uL (0.4-5.4); Lymphocytes % (auto) 9.1 % (10.0-50.0); Mean Corpuscular Hemoglobin 36.6 pg (28.0-32.0); Mean Corpuscular Volume 101.7 fL (80.0-100.0); Monocytes # (auto) 0.9 10 ^3/uL (0-1.3); Monocytes % (auto) 13.3 % (0.0-12.0); Neutrophils # (auto) 5.3 10 ^3/uL (1.6-8.6); Neutrophils % (auto) 75.4 % (37.0-80.0); Platelet Count (auto) 80 10^3/uL (140-450); Red Blood Cells 3.72 10^6/uL (4.5-5.90); Red Cell Distribution Width 14.6 % (11.8-14.3)
[2024-06-16] MEDS: AMIODARONE 450mg/250ml AE 250 ML IV SCH (03:55)
[2024-06-16 03:56] LABS: Chloride 94 mmol/L (98-107); Potassium 4.6 mmol/L (3.5-5.1)
[2024-06-16 03:57] LABS: Anion Gap 3 (5-15); Carbon Dioxide 23 mmol/L (20-31)
[2024-06-16 03:58] LABS: Calcium 8.1 mg/dL (8.7-10.4)
[2024-06-16 04:02] LABS: BUN/Creatinine Ratio 22.3 (10.0-20.0); Blood Urea Nitrogen 33 mg/dL (9-23)
[2024-06-16 04:20] LABS: Glucose 319 mg/dL (74-106); Sodium 120 mmol/L (136-145)
[2024-06-16] MEDS: MIDODRINE HCL 10 MG TAB PO SCH (09:27)
[2024-06-16] MEDS: ALBUMIN 25% 50 ML IV SCH (09:47)
[2024-06-16] MEDS ORDERED: AMIODARONE HCL 200 MG TAB PO SCH (10:00)
[2024-06-16] MEDS: DIGOXIN 0.125 MG TAB PO SCH (10:17)
[2024-06-17] VITALS (7 sets, daily range): BP systolic 95–107; BP diastolic 52–65; PULSE 67–75; RESP 16–20; TEMP 36.6; O2SAT 94–98
[2024-06-17 07:04] LABS: Basophils % (auto) 0.6 % (0.0-2.0); Eosinophils # (auto) 0.1 10 ^3/uL (0-0.8); Hematocrit 40.7 % (41.0-53.0); Mean Corpuscular Hemoglobin 35.6 pg (28.0-32.0); Nucleated Red Blood Cells % 0.1 %
[2024-06-17 07:06] LABS: Basophils # (auto) 0 10 ^3/uL (0-0.2); Eosinophils % (auto) 1.2 % (0.0-7.0); Hemoglobin 14.4 g/dL (13.5-17.5); Lymphocytes # (auto) 0.7 10 ^3/uL (0.4-5.4); Lymphocytes % (auto) 7.9 % (10.0-50.0); Mean Corpuscular Hgb Conc. 35.5 g/dL (32.0-36.0); Mean Corpuscular Volume 100.4 fL (80.0-100.0); Monocytes % (auto) 11.6 % (0.0-12.0); Neutrophils # (auto) 6.8 10 ^3/uL (1.6-8.6); Neutrophils % (auto) 78.7 % (37.0-80.0); Platelet Count (auto) 114 10^3/uL (140-450); Red Blood Cells 4.05 10^6/uL (4.5-5.90); Red Cell Distribution Width 14.5 % (11.8-14.3); White Blood Cell 8.6 10^3/uL (4.4-10.8)
[2024-06-17 07:10] LABS: Alanine Aminotransferase 20 U/L (7-40); Alkaline Phosphatase 132 U/L (46-116); Anion Gap 5 (5-15); BUN/Creatinine Ratio 26.6 (10.0-20.0); Blood Urea Nitrogen 34 mg/dL (9-23); Calcium 8.9 mg/dL (8.7-10.4); Carbon Dioxide 24 mmol/L (20-31); Chloride 97 mmol/L (98-107); Potassium 4.6 mmol/L (3.5-5.1)
[2024-06-17 07:12] LABS: Albumin 3.6 g/dL (3.2-4.8); Aspartate Aminotransferase 33 U/L (13-40)
[2024-06-17 07:13] LABS: Bilirubin, Total 1.8 mg/dL (0.2-1.0); Total Protein 6.1 g/dL (5.7-8.2)
[2024-06-17 07:14] LABS: Glucose 127 mg/dL (74-106); Sodium 126 mmol/L (136-145)
[2024-06-17] MEDS: dilTIAZem 120MG ER CAP PO SCH (09:47)
[2024-06-17] MEDS ORDERED: dilTIAZem 120MG ER CAP PO SCH (10:00)
[2024-06-17] MEDS ORDERED: DIGO0.12 PO (11:43)
[2024-06-17] MEDS ORDERED: FLEC1TAB PO (11:43)
[2024-06-17] MEDS ORDERED: DILT120T16 PO (11:43)
== END 2024-06-17 13:25 | disposition home or self-care (01) | DRG 871 ==
LOC: EDBD 05:28 → ER 05:28 → OVERFLOW 11:23 → WEST WING 23:09 → TELE-WESTW 06-10 13:26 → ICU CENTRL 06-10 15:50 → TELE-CENTR 06-11 17:09 → DOU IN ICU 06-13 04:30 → TELE-WESTW 06-13 13:01 → ICU WEST 06-15 22:36 → TELE-WESTW 06-16 20:20
PROVIDERS: ADMIT Internal Medicine; ATTEND Internal Medicine
PROC: 0W9G3ZZ Drainage of Peritoneal Cavity, Percutaneous Approach (ICD-10-PCS; 2024-06-09)
PROC: 02HV33Z Insertion of Infusion Device into Superior Vena Cava, Percutaneous Approach (ICD-10-PCS; 2024-06-10)
PROC: B548ZZA Ultrasonography of Superior Vena Cava, Guidance (ICD-10-PCS; 2024-06-10)
PROC: 0W9G3ZZ Drainage of Peritoneal Cavity, Percutaneous Approach (ICD-10-PCS; principal; 2024-06-12)
DX: A41.9 Sepsis, unspecified organism (principal); K65.2 Spontaneous bacterial peritonitis; N17.0 Acute kidney failure with tubular necrosis; R65.21 Severe sepsis with septic shock; K76.7 Hepatorenal syndrome; J98.11 Atelectasis; E87.1 Hypo-osmolality and hyponatremia; I47.10 Supraventricular tachycardia, unspecified; I10 Essential (primary) hypertension; I48.0 Paroxysmal atrial fibrillation; K70.9 Alcoholic liver disease, unspecified; K72.10 Chronic hepatic failure without coma; E87.5 Hyperkalemia; E87.70 Fluid overload, unspecified; K70.31 Alcoholic cirrhosis of liver with ascites; E11.65 Type 2 diabetes mellitus with hyperglycemia; K59.00 Constipation, unspecified; Z68.21 Body mass index [BMI] 21.0-21.9, adult; Z83.3 Family history of diabetes mellitus; Z79.899 Other long term (current) drug therapy; Z91.018 Allergy to other foods; L50.8 Other urticaria
CPT/HCPCS: 36415; 36569; 49083; 71045; 74177; 76705; 76942; 80048; 80053; 80076; 81001; 82306; 82570; 82962; 83605; 83615; 83735; 83986; 84100; 84132; 84156; 84300; 84443; 84484; 84550; 85025; 85610; 87040; 87081; 87086; 87205; 89051; 93005; 94640; G0378; J0153; J1815; J2405; P9047